=== PATIENT | male | born 1970 | race African-American/Black ===

== ENCOUNTER 2018-12-07 21:38 | Inpatient (IN) | payer MEDICAID, OTHER ==
[~2018-12-07] VITALS: Ht 170.2 cm; Wt 95.5 kg
[2018-12-08] MEDS ORDERED: IPRATROPIUM BROMIDE (0.02%) 0.5MG/2.5ML NEB HHN STA (01:50)
[2018-12-08] MEDS ORDERED: ALBUTEROL (0.083%) 2.5MG/3ML NEB HHN STA (01:50)
[2018-12-08] MEDS ORDERED: PREDNISONE 20MG TABLET PO ONE (02:00)
[2018-12-08] MEDS ORDERED: AZITHROMYCIN 500 MG TABLET PO ONE (02:30)
[2018-12-08] MEDS ORDERED: CEFTRIAXONE 1 G PREMIX 50 ML IV ONE (02:30)
[2018-12-08 03:26] LABS: BASOPHILS % 1.1 % (0.0-2.0); EOSINOPHILS % 2.8 % (0.0-5.0); HEMATOCRIT. 42.5 % (42.0-52.0); HEMOGLOBIN. 13.4 g/dL (14.0-18.0); MEAN CORPUSCULAR HEMOGLOBIN 25.8 pg (28.0-32.0); MEAN CORPUSCULAR VOLUME 81.9 fL (80.0-94.0); MEAN PLATELET VOLUME 8.9 fl (7.4-10.4); MONOCYTES % 7.1 % (2.0-8.0); PLATELET 274 x1000/uL (130-400); RED BLOOD CELL COUNT 5.19 mill/uL (4.7-6.1); RED CELL DISTRIBUTION WIDTH 16.2 % (11.6-14.6)
[2018-12-08 03:30] LABS: CHLORIDE 110 mEq/L (98-107); INR 1.1; PROTHROMBIN TIME 10.7 sec (9.1-11.1)
[2018-12-08 06:48] LABS: CLARITY URINE CLEAR (CLEAR); COLOR URINE YELLOW (YELLOW)
[2018-12-08 06:49] LABS: KETONES URINE 1+ (NEGATIVE); LEUKOCYTE ESTERASE URINE NEGATIVE (NEGATIVE); NITRITE URINE NEGATIVE (NEGATIVE); OCCULT BLOOD URINE TRACE (NEGATIVE); PROTEIN URINE TRACE (NEGATIVE); UROBILINOGEN URINE 0.2 E.U./dL (0.2-1.0)
[2018-12-08] MEDS ORDERED: CLONIDINE 0.1MG TABLET PO PRN (09:15)
[2018-12-08] MEDS ORDERED: ZOLPIDEM TARTRATE 5MG TABLET PO PRN (09:15)
[2018-12-08] MEDS ORDERED: KETOROLAC 15MG/ML VIAL IV PRN (09:15)
[2018-12-08] MEDS ORDERED: IPRATROPIUM/ALBUTEROL 0.5-3(2.5)MG/3ML NEB INH PRN (09:15)
[2018-12-08] MEDS ORDERED: ACETAMINOPHEN 325MG TABLET PO PRN (09:15)
[2018-12-08] MEDS ORDERED: LORAZEPAM 0.5MG TABLET PO PRN (09:15)
[2018-12-08] MEDS ORDERED: MAGNESIUM/ALUMINUM HYDROXIDE/SIMETHICONE 30ML UDC PO PRN (09:15)
[2018-12-08] MEDS ORDERED: ONDANSETRON HCL 4MG/2ML INJ IV PRN (09:15)
[2018-12-08] MEDS ORDERED: DEXTROSE 50% WATER 50ML SYRINGE IV PRN (09:15)
[2018-12-08] MEDS ORDERED: NA PHOS,M-B/NA PHOS,DI-BA ENEMA 118ML PR PRN (09:15)
[2018-12-08] MEDS ORDERED: NITROGLYCERIN 0.4MG TABLET SL SL PRN (09:15)
[2018-12-08] MEDS ORDERED: DOCUSATE SODIUM 100MG CAPSULE PO PRN (09:15)
[2018-12-08] MEDS ORDERED: GUAIFENESIN 200MG/10ML SUGAR FREE UDC PO PRN (09:15)
[2018-12-08 09:37] LABS: ETHANOL BLOOD < 10 mg/dL
[2018-12-08 09:40] LABS: LDL CHOLESTEROL 120 mg/dL (5-100)
[2018-12-08 09:42] LABS: HDL CHOLESTEROL 41 mg/dL (40-59)
[2018-12-08] MEDS: BLOOD SUGAR DIAGNOSTIC STRIP TEST SCH ×3 (13:00→21:00)
[2018-12-08 14:40] LABS: *AMPHETAMINES SCREEN URINE NEGATIVE (NEGATIVE); *BARBITURATES SCREEN URINE NEGATIVE (NEGATIVE); *BENZODIAZEPINES SCREEN URINE NEGATIVE (NEGATIVE); *COCAINE SCREEN URINE PRESUMTIVE POSITIVE (NEGATIVE)
[2018-12-08 14:41] LABS: CANNABINOID URINE SCREEN PRESUMTIVE POSITIVE (NEGATIVE); METHADONE URINE SCREEN NEGATIVE (NEGATIVE); OPIATES URINE SCREEN NEGATIVE (NEGATIVE); PHENCYCLIDINE URINE SCREEN NEGATIVE (NEGATIVE)
[2018-12-08 16:10] LABS: CREATINE KINASE MB FRACTION 2.5 ng/mL (0.5-3.6)
[2018-12-08] MEDS: INSULIN LISPRO 100 UNITS/ML SUBCUT SCH ×2 (19:09→21:00)
[2018-12-08 22:00] VITALS: BP 148/97
[2018-12-08] MEDS: CARVEDILOL 3.125 MG TABLET PO SCH (22:18)
[2018-12-08] MEDS: SPIRONOLACTONE 25MG TABLET PO SCH (22:18)
[2018-12-08 22:33] VITALS: BP 148/97
[2018-12-08] MEDS: FUROSEMIDE 40MG/4ML VIAL IVP SCH (23:41)
[2018-12-09 00:24] LABS: CREATINE KINASE MB FRACTION 2.2 ng/mL (0.5-3.6)
[2018-12-09 04:00] VITALS: BP 139/105
[2018-12-09] MEDS: BLOOD SUGAR DIAGNOSTIC STRIP TEST SCH (06:09)
[2018-12-09] MEDS: INSULIN LISPRO 100 UNITS/ML SUBCUT SCH (06:27)
[2018-12-09 08:00] VITALS: BP 119/84
[2018-12-09] MEDS ORDERED: ENOXAPARIN 30MG/0.3ML SYR SUBCUT SCH (09:00)
[2018-12-09] MEDS ORDERED: ASPIRIN 325MG EC TABLET PO SCH (09:00)
[2018-12-09] MEDS ORDERED: PANTOPRAZOLE SODIUM 40 MG/VIAL IV SCH (09:00)
[2018-12-09] MEDS: FUROSEMIDE 40MG/4ML VIAL IVP SCH (09:24)
[2018-12-09] MEDS: CARVEDILOL 3.125 MG TABLET PO SCH (09:25)
[2018-12-09] MEDS: SPIRONOLACTONE 25MG TABLET PO SCH (09:25)
[2018-12-09 10:48] VITALS: BP 119/84
== END 2018-12-09 11:00 | disposition home or self-care (01) | DRG 816 ==
LOC: ER 21:38 → 5WST 12-08 03:09 → EDBEDREQ 12-08 03:11 → EDBEDREQSVC 12-08 03:11 → EDBEDREQTM 12-08 03:11 → ENRESERV 12-08 19:59 → EDBEDREQ 12-08 20:26
PROVIDERS: ADMIT Internal Medicine; ATTEND Internal Medicine
DX: T40.5X1A Poisoning by cocaine, accidental (unintentional), initial encounter (principal); I50.43 Acute on chronic combined systolic (congestive) and diastolic (congestive) heart failure; E11.65 Type 2 diabetes mellitus with hyperglycemia; J44.0 Chronic obstructive pulmonary disease with (acute) lower respiratory infection; I11.0 Hypertensive heart disease with heart failure; F14.10 Cocaine abuse, uncomplicated; F17.210 Nicotine dependence, cigarettes, uncomplicated; F19.10 Other psychoactive substance abuse, uncomplicated; Z71.51 Drug abuse counseling and surveillance of drug abuser; Y92.89 Other specified places as the place of occurrence of the external cause; Z91.14 Patient's other noncompliance with medication regimen
CPT/HCPCS: 36415; 71045; 80061; 80305; 82550; 82553; 82962; 83036; 83605; 83880; 84145; 84484; 93005; 93306; 93970; 94644; 96365; 96372; 99291; C9113; J0696; J1650; J1815; J1940; J7512; J7611